=== PATIENT | male | born 1990 | race Caucasian/White ===

== ENCOUNTER → 2019-12-28 11:57 | Outpatient (CLI) | payer BC, SELFPAY ==
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
== END ==
PROVIDERS: PCP Family Medicine; Visit Provider Family Medicine
DX: M25.531 Pain in right wrist (principal)
CPT/HCPCS: 73110